=== PATIENT | female | born 1990 | race Two or more races ===

== ENCOUNTER 2020-09-17 09:34 | Emergency (ER) | payer MEDICAID, SELFPAY ==
[~2020-09-17] VITALS: Ht 167.6 cm; Wt 181.4 kg
[2020-09-17 10:35] VITALS: BP 130/65
--- NOTE | 2020-09-17 10:35 | NUR ---
TO TENT AMBULATORY
[2020-09-17 12:22] VITALS: BP 130/65
--- NOTE | 2020-09-17 12:22 | NUR ---
D/C BY DR OG. ALL INSTRUCTIONS AND RX GIVEN BY .
== END 2020-09-17 12:22 | disposition home or self-care (01) ==
LOC: MED 09:34
DX: S00.81XA Abrasion of other part of head, initial encounter (principal); W19.XXXA Unspecified fall, initial encounter; Y93.89 Activity, other specified; Y92.89 Other specified places as the place of occurrence of the external cause; Y99.8 Other external cause status
CPT/HCPCS: 99282

== ENCOUNTER 2020-11-26 17:39 | Emergency (ER) | payer MEDICAID, SELFPAY ==
[~2020-11-26] VITALS: Ht 163.8 cm; Wt 183.8 kg
[2020-11-26 17:48] VITALS: BP 185/108
--- NOTE | 2020-11-26 17:58 | NUR ---
PATIENT AMBULATED TO BED 06 WITH STEADY GAIT
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
[2020-11-26] MEDS ORDERED: LORazepam 2 MG/ML VIAL IM ONE (18:10)
[2020-11-26 18:58] VITALS: BP 178/100
--- NOTE | 2020-11-26 18:58 | NUR ---
Patient discharged with v/s stable. Written and verbal after care instructions about social anxiety disorder given and explained. Patient alert, oriented and verbalized understanding of instructions. Ambulatory with steady gait. All questions addressed prior to discharge. ID band removed. Patient advised to follow up with PMD. Opportunity to ask questions provided and answered.
== END 2020-11-26 18:58 | disposition home or self-care (01) ==
LOC: MED 17:39
DX: F41.9 Anxiety disorder, unspecified (principal); E66.9 Obesity, unspecified; I10 Essential (primary) hypertension
CPT/HCPCS: 96372; 99283; J2060

== ENCOUNTER 2020-12-16 16:11 | Emergency (ER) | payer MEDICAID ==
[~2020-12-16] VITALS: Ht 167.6 cm; Wt 195.0 kg
[2020-12-16 16:22] VITALS: BP 152/80
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
--- NOTE | 2020-12-16 16:30 | NUR ---
PT DOES NOT FEEL SAFE AT HOME, DENIES SI.
--- NOTE | 2020-12-16 16:44 | NUR ---
INTERACTIVE ACCOUNT MANAGER IS REQUESTING TO SEE PT, PT STATES SHE DOES NOT WANT HER IN ROOM BECAUSE SHE DOES NOT FEEL SAFE WITH HER.
[2020-12-16] MEDS ORDERED: KETOROLAC 30 MG/ML VIAL IM ONE (16:55)
--- NOTE | 2020-12-16 17:10 | NUR ---
PT UNABLE TO GIVE URINE AT THIS TIME AND REQUESTING SPECIAL EDUCATION SECRETARY
--- NOTE | 2020-12-16 17:19 | NUR ---
X RAY AT BEDSIDE
--- NOTE | 2020-12-16 17:34 | NUR ---
PER HOTEL CUSTODIAN, PT HAS TO REACH OUT TO HER ASSISTANT ENGINEER REGARDING HER REQUEST FOR A NEW BOARD AND CARE.
--- NOTE | 2020-12-16 17:39 | NUR ---
PT WAS TAKEN TO IMAGING
--- NOTE | 2020-12-16 18:05 | NUR ---
PT BROUGHT BACK FROM RADIOLOGY VIA W/C AND PLACED IN BED 8 ACCOMPANIED BY ZELDA.
--- NOTE | 2020-12-16 18:06 | NUR ---
PT RETURNED FROM IMAGING. NOW RESTING IN BED.
[2020-12-16] MEDS ORDERED: NAPR-54 PO (18:43)
[2020-12-16] MEDS ORDERED: METH750T5 PO (18:43)
--- NOTE | 2020-12-16 19:13 | NUR ---
PATRICK MASTERS: [phone]
[2020-12-16 19:14] VITALS: BP 152/80
--- NOTE | 2020-12-16 19:14 | NUR ---
Patient discharged with v/s stable. Written and verbal after care instructions given and explained. Patient alert, oriented and verbalized understanding of instructions. Ambulatory with by caregiver. All questions addressed prior to discharge. ID band removed. Patient advised to follow up with PMD. Rx of METHOCARBAMOL, NAPROXEN given. Patient educated on indication of medication including possible reaction and side effects. Opportunity to ask questions provided and answered.
--- NOTE | 2020-12-16 19:23 | NUR ---
PT DENIED SI AGAIN, GUERRERO IS INSISTING ON PSYCH EVAL, KIM MADE AWARE AND DENIES NEED FOR EVAL IF PT IS DENYING SI AND IS A&OX4.
== END 2020-12-16 19:14 | disposition home or self-care (01) ==
LOC: MED 16:11
DX: M54.2 Cervicalgia (principal); M54.5 Low back pain; M25.561 Pain in right knee; E11.9 Type 2 diabetes mellitus without complications; I10 Essential (primary) hypertension; Y04.8XXA Assault by other bodily force, initial encounter; Y93.89 Activity, other specified; Y92.89 Other specified places as the place of occurrence of the external cause; Y99.8 Other external cause status
CPT/HCPCS: 72050; 72110; 73562; 81002; 81025; 96372; 99284; J1885

== ENCOUNTER 2023-01-05 18:41 | Emergency (ER) | payer MEDICAID ==
[~2023-01-05] VITALS: Ht 172.7 cm; Wt 176.4 kg
[~2023-01-05 18:41] MED LIST: METH750T5 PO; NAPR-54 PO
[2023-01-05 18:57] VITALS: BP 142/58
--- NOTE | 2023-01-05 19:00 | NUR ---
AVULSION OF THE 3RD METATARSAL OF THE LEFT FOOT, SUSTAINED AN HOUR COMMUNITY HEALTH PROMOTER. BLEEDING CONTROLLED.
--- NOTE | 2023-01-05 19:01 | NUR ---
AVULSION OF THE 3RD METATARSAL OF THE LEFT FOOT, SUSTAINED AN HOUR SURVEILLANCE SENSOR OFFICER. BLEEDING CONTROLLED.
--- NOTE | 2023-01-05 19:18 | NUR ---
CASTING TECHNICIAN BARRIOS examining patient.
--- NOTE | 2023-01-05 19:27 | NUR ---
Patient taken to bed 11.
[2023-01-05] MEDS ORDERED: LIDOCAINE MPF 1% 10 MG/ML VIAL INJ ONE (19:30)
--- NOTE | 2023-01-05 19:30 | NUR ---
caregiver at the bedside with pt
--- NOTE | 2023-01-05 19:45 | NUR ---
doing the procedure
[2023-01-05] MEDS ORDERED: IBUP-2213 PO (19:58)
[2023-01-05 20:11] VITALS: BP 130/68
== END 2023-01-05 20:39 | disposition home or self-care (01) ==
LOC: MED 18:41
DX: S91.202A Unspecified open wound of left great toe with damage to nail, initial encounter (principal); W22.8XXA Striking against or struck by other objects, initial encounter; Y93.89 Activity, other specified; Y92.89 Other specified places as the place of occurrence of the external cause; Y99.8 Other external cause status
CPT/HCPCS: 11730; 90471; 90715; 99284; J2001

== ENCOUNTER 2023-01-11 18:13 | Emergency (ER) | payer MEDICAID ==
[~2023-01-11] VITALS: Ht 167.6 cm; Wt 179.2 kg
[~2023-01-11 18:13] MED LIST changes: +IBUP-2213 PO
[2023-01-11 18:22] VITALS: BP 151/86
--- NOTE | 2023-01-11 18:40 | NUR ---
PT AMBULATED TO BED 5
--- NOTE | 2023-01-11 18:53 | NUR ---
FRANKLIN AT BEDSIDE FOR EVALUATION
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
[2023-01-11] MEDS ORDERED: NACL 0.9% 1,000 ML IV ONE (19:00)
--- NOTE | 2023-01-11 19:30 | NUR ---
REPORT GIVEN TO MICHELINE HELTON. TRANSFER OF CARE AT THIS TIME
--- NOTE | 2023-01-11 19:39 | NUR ---
REPORT FR [place] ORTIZ , ALL QUESTIONS WERE ANSWERED , PT IN NAD
[2023-01-11 20:28] LABS: BASOPHILS # (AUTO) 0.1 K/uL (0.00-0.22); BASOPHILS % (AUTO) 0.7 % (0.0-2.0); EOSINOPHILS # (AUTO) 0.2 K/uL (0-0.4); HEMATOCRIT 37.8 % (36-48); HEMOGLOBIN 12.8 g/dL (12.0-16.0); MEAN CORPUSCULAR HEMOGLOBIN 31 pg (27-31); MEAN CORPUSCULAR HGB CONC 34 g/dL (33-37); MEAN CORPUSCULAR VOLUME 92.3 fL (80-94); MONOCYTES # (AUTO) 0.7 K/uL (0.8-1.0); MONOCYTES % (AUTO) 6.4 % (1.7-9.3); NEUTROPHILS # (AUTO) 7.6 K/uL (1.8-7.7); NEUTROPHILS % (AUTO) 71.9 % (42.2-75.2); PLATELET COUNT (AUTO) 229 K/uL (140-450); WHITE BLOOD COUNT (AUTO) 10.6 K/uL (4.8-10.8)
[2023-01-11 21:03] LABS: ALBUMIN 3.5 g/dL (3.4-5.0); ANION GAP 12.5 (8-16); CARBON DIOXIDE 30.3 mmol/L (21-32); POTASSIUM 3.8 mmol/L (3.5-5.1); TOTAL BILIRUBIN 0.2 mg/dL (0.0-1.0)
[2023-01-11] MEDS ORDERED: LOPE1TAB14 PO (21:19)
[2023-01-11 21:55] VITALS: BP 125/87
--- NOTE | 2023-01-11 22:00 | NUR ---
Patient discharged with v/s stable. Written and verbal after care instructions given and explained. Patient alert, oriented and verbalized understanding of instructions. Ambulatory with by caregiver. All questions addressed prior to discharge. ID band removed. Patient advised to follow up with PMD. Rx of LOPERAMIDE given. Patient educated on indication of medication including possible reaction and side effects. Opportunity to ask questions provided and answered.
[2023-01-14] MEDS ORDERED: LOPE1TAB14 PO (16:10)
== END 2023-01-11 21:30 | disposition home or self-care (01) ==
LOC: MED 18:13
DX: R19.7 Diarrhea, unspecified (principal); M54.50 Low back pain, unspecified; R10.30 Lower abdominal pain, unspecified; I10 Essential (primary) hypertension; Z79.899 Other long term (current) drug therapy
CPT/HCPCS: 36415; 80053; 83690; 85025; 96360; 99283; J7030

== ENCOUNTER 2023-01-15 08:21 | Emergency (ER) | payer MEDICAID ==
[~2023-01-15] VITALS: Ht 167.6 cm; Wt 177.8 kg
[~2023-01-15 08:21] MED LIST changes: +LOPE1TAB14 PO
[2023-01-15 08:25] VITALS: BP 147/79
--- NOTE | 2023-01-15 08:30 | NUR ---
suture removal kit at bedside
[2023-01-15 09:10] VITALS: BP 147/79
--- NOTE | 2023-01-15 09:10 | NUR ---
Patient discharged with v/s stable. Written and verbal after care instructions given and explained. Patient verbalized understanding. Ambulatory with steady gait. All questions addressed prior to discharge. Advised to follow up with PMD.
[2023-01-15] MEDS ORDERED: LOPE1TAB14 PO (12:18)
== END 2023-01-15 09:10 | disposition home or self-care (01) ==
LOC: MED 08:21
DX: S91.115D Laceration without foreign body of left lesser toe(s) without damage to nail, subsequent encounter (principal); I10 Essential (primary) hypertension; Z79.899 Other long term (current) drug therapy; X58.XXXD Exposure to other specified factors, subsequent encounter
CPT/HCPCS: 99281

== ENCOUNTER 2023-01-19 18:56 | Emergency (ER) | payer MEDICAID ==
[~2023-01-19] VITALS: Ht 167.6 cm; Wt 178.7 kg
[2023-01-19 19:10] VITALS: BP 128/64
[2023-01-19] MEDS ORDERED: diphenhydrAMINE 50 MG/ML VIAL IM ONE (22:35)
[2023-01-19] MEDS ORDERED: methylPREDNISolone SS 125 MG in WATER STERILE 2 ML IM ONE (22:35)
[2023-01-19] MEDS ORDERED: methylPREDNISolone SS 125 MG/2 ML VIAL ONE (22:37)
[2023-01-19] MEDS ORDERED: WATER STERILE 10 ML MC ONE (22:37)
[2023-01-19] MEDS ORDERED: BEN50 PO (22:48)
[2023-01-19 22:55] VITALS: BP 128/64
--- NOTE | 2023-01-19 22:55 | NUR ---
D/C BY . PRESCRIBED BENADRYL, ACCOMPANIED BY ANGELINA
== END 2023-01-19 22:55 | disposition home or self-care (01) ==
LOC: MED 18:56
DX: L50.9 Urticaria, unspecified (principal); I10 Essential (primary) hypertension; Z79.899 Other long term (current) drug therapy
CPT/HCPCS: 96372; 99284; J1200; J2930

== ENCOUNTER 2023-02-03 19:55 | Emergency (ER) | payer MEDICAID ==
[~2023-02-03] VITALS: Ht 167.6 cm; Wt 223.2 kg
[~2023-02-03 19:55] MED LIST changes: +BEN50 PO
[2023-02-03 20:42] VITALS: BP 112/78
--- NOTE | 2023-02-03 22:25 | NUR ---
Patient comfortable in bed. No signs of cardiorespiratory distress.
--- NOTE | 2023-02-03 22:38 | NUR ---
DR TABOR AT BEDSIDE
[2023-02-04] MEDS ORDERED: NAPR-1704 PO (00:03)
[2023-02-04 00:35] VITALS: BP 141/87
== END 2023-02-04 00:34 | disposition home or self-care (01) ==
LOC: MED 19:55
DX: M25.571 Pain in right ankle and joints of right foot (principal); I10 Essential (primary) hypertension; E03.9 Hypothyroidism, unspecified; Z79.899 Other long term (current) drug therapy
CPT/HCPCS: 29515; 73610; 99283; Q0092

== ENCOUNTER 2023-02-11 19:04 | Emergency (ER) | payer MEDICAID ==
[~2023-02-11] VITALS: Ht 162.6 cm; Wt 175.5 kg
[~2023-02-11 19:04] MED LIST changes: +NAPR-1704 PO
[2023-02-11 19:09] VITALS: BP 138/75
--- NOTE | 2023-02-11 19:54 | NUR ---
PT TAKEN TO XRAY
--- NOTE | 2023-02-11 20:00 | NUR ---
PT RETURN FROM RADIOLOGY TO ER LOBBY
[2023-02-11] MEDS ORDERED: IBUPROFEN 600 MG TAB PO ONE (20:15)
--- NOTE | 2023-02-11 20:25 | NUR ---
PT WAS ALREADY GIVEN MOTRIN BY DETENTION.
[2023-02-11 20:27] VITALS: BP 138/75
== END 2023-02-11 20:27 | disposition home or self-care (01) ==
LOC: MED 19:04
DX: S93.402A Sprain of unspecified ligament of left ankle, initial encounter (principal); I10 Essential (primary) hypertension; E03.9 Hypothyroidism, unspecified; E11.9 Type 2 diabetes mellitus without complications; Z79.899 Other long term (current) drug therapy; Z79.1 Long term (current) use of non-steroidal anti-inflammatories (NSAID); F31.9 Bipolar disorder, unspecified; Y04.0XXA Assault by unarmed brawl or fight, initial encounter; Y92.009 Unspecified place in unspecified non-institutional (private) residence as the place of occurrence of the external cause; Y93.89 Activity, other specified; Y99.8 Other external cause status
CPT/HCPCS: 73610; 99283

== ENCOUNTER 2023-03-14 16:38 | Emergency (ER) | payer MEDICAID ==
[~2023-03-14] VITALS: Ht 170.2 cm; Wt 173.3 kg
[2023-03-14 16:51] VITALS: BP 113/72; PULSE 80; RESP 20; TEMP 97.4; O2SAT 98
[2023-03-14] MEDS ORDERED: BACITRACIN OINT 500 UNITS/GM PKT TP ONE (18:00)
[2023-03-14] MEDS ORDERED: IBUP-2213 PO (18:03)
--- NOTE | 2023-03-14 18:25 | NUR ---
VOLAR SPLINT APPLIED. + CMS. NON ADHERENT APPLIED TO L POSTERIOR HAND. + CMS
--- NOTE | 2023-03-14 18:25 | NUR ---
PT AMBULATED WITH CAREGIVER TO BED 03
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
[2023-03-14 19:10] VITALS: BP 113/72; PULSE 80; RESP 20; TEMP 97.4; O2SAT 98
--- NOTE | 2023-03-14 19:10 | NUR ---
Patient discharged with v/s stable. Written and verbal after care instructions given and explained. Patient alert, oriented and verbalized understanding of instructions. Ambulatory with steady gait. All questions addressed prior to discharge. ID band removed. Patient advised to follow up with PMD. Rx of IBUPROFEN (SENT) given. Patient educated on indication of medication including possible reaction and side effects. Opportunity to ask questions provided and answered.
--- NOTE | 2023-03-14 19:12 | NUR ---
The patient's care was reviewed and supervised by Laura Flower, RN, RN.
== END 2023-03-14 19:10 | disposition home or self-care (01) ==
LOC: MED 16:38
DX: S60.222A Contusion of left hand, initial encounter (principal); S60.221A Contusion of right hand, initial encounter; I10 Essential (primary) hypertension; E03.9 Hypothyroidism, unspecified; Z79.899 Other long term (current) drug therapy; W22.01XA Walked into wall, initial encounter; Y93.89 Activity, other specified; Y92.89 Other specified places as the place of occurrence of the external cause; Y99.8 Other external cause status
CPT/HCPCS: 73130; 90471; 90715; 99283

== ENCOUNTER 2023-03-17 20:42 | Emergency (ER) | payer MEDICAID ==
[~2023-03-17] VITALS: Ht 167.6 cm; Wt 171.0 kg
[2023-03-17 21:34] VITALS: BP 110/73; PULSE 69; RESP 20; TEMP 98.2; O2SAT 98
--- NOTE | 2023-03-17 21:42 | NUR ---
PT WENT TO THE LOBBY
--- NOTE | 2023-03-18 00:58 | NUR ---
PATIENT LEFT WITHOUT BEING SEEN BY DR. TABOR. NO FURTHER CARE PROVIDED FOR PATIENT.
== END 2023-03-18 00:58 | disposition left against medical advice (07) ==
LOC: MED 20:42
DX: M79.641 Pain in right hand (principal); Z53.21 Procedure and treatment not carried out due to patient leaving prior to being seen by health care provider
CPT/HCPCS: 99281

== ENCOUNTER 2023-04-05 18:16 | Emergency (ER) | payer MEDICAID ==
[~2023-04-05] VITALS: Ht 167.6 cm; Wt 195.0 kg
[~2023-04-05 18:16] MED LIST changes: +FAMO-92 PO; +MAG-27 PO; +METO-485 PO
[2023-04-05 18:45] VITALS: BP 120/71; PULSE 75; RESP 18; TEMP 98; O2SAT 100
--- NOTE | 2023-04-05 19:04 | NUR ---
PT AMBULATED TO BED 7 W/STEADY GAIT.
[2023-04-05 19:33] LABS: BARBITURATE, URINE NEGATIVE ng/ml (NEG <=200); BENZODIAZEPINE, URINE NEGATIVE ng/mL (NEG <=200); CANNABINOID, URINE NEGATIVE ng/mL (NEG <=50); COCAINE, URINE NEGATIVE ng/mL (NEG <=300); OPIATE, URINE NEGATIVE ng/mL (NEG <=2000); PHENCYCLIDINE SCREEN,URINE NEGATIVE ng/mL (NEG <=25)
--- NOTE | 2023-04-05 19:33 | NUR ---
RECEIVED REPORT FROM DAY SHIFT NURSE. PT LYING IN BED AND CALL LIGHT WITHIN REACH. C/O PAIN 02/15. CONTINUING CARE OF PT.
[2023-04-05 19:55] VITALS: PULSE 68; RESP 21; O2SAT 98
[2023-04-05 19:57] LABS: BASOPHILS % (AUTO) 0.5 % (0.0-2.0); EOSINOPHILS # (AUTO) 0.2 K/uL (0-0.4); EOSINOPHILS % (AUTO) 1.8 % (0.0-4.0); HEMATOCRIT 37.9 % (36-48); HEMOGLOBIN 12.6 g/dL (12.0-16.0); LYMPHOCYTES # (AUTO) 2.6 K/uL (2.5-16.5); LYMPHOCYTES % (AUTO) 28.9 % (20.5-51.1); MEAN CORPUSCULAR HEMOGLOBIN 31 pg (27-31); MEAN CORPUSCULAR HGB CONC 33 g/dL (33-37); MEAN CORPUSCULAR VOLUME 93.6 fL (80-94); MONOCYTES # (AUTO) 0.5 K/uL (0.8-1.0); MONOCYTES % (AUTO) 5.3 % (1.7-9.3); NEUTROPHILS # (AUTO) 5.6 K/uL (1.8-7.7); NEUTROPHILS % (AUTO) 63.5 % (42.2-75.2); PLATELET COUNT (AUTO) 215 K/uL (140-450); RED BLOOD CELL COUNT(AUTO) 4.05 MIL/uL (4.20-5.40); RED CELL DISTRIBUTION WIDTH 13.8 % (11.6-13.7); WHITE BLOOD COUNT (AUTO) 8.8 K/uL (4.8-10.8)
[2023-04-05 20:10] LABS: ALBUMIN 3.4 g/dL (3.4-5.0); ANION GAP 12.9 (8-16); CARBON DIOXIDE 28.6 mmol/L (21-32); CREATININE 0.8 mg/dL (0.6-1.3); POTASSIUM 3.5 mmol/L (3.5-5.1); TOTAL BILIRUBIN 0.1 mg/dL (0.0-1.0)
== END 2023-04-05 20:35 | disposition home or self-care (01) ==
LOC: MED 18:16
DX: M79.3 Panniculitis, unspecified (principal); R10.32 Left lower quadrant pain; R10.31 Right lower quadrant pain; R19.7 Diarrhea, unspecified; Z79.899 Other long term (current) drug therapy
CPT/HCPCS: 36415; 80053; 80305; 81002; 81025; 82150; 83690; 85025; 99284

== ENCOUNTER 2023-04-11 07:34 | Emergency (ER) | payer MEDICAID ==
[~2023-04-11] VITALS: Ht 167.6 cm; Wt 136.1 kg
[2023-04-11 07:37] VITALS: BP 134/82; PULSE 71; RESP 16; TEMP 98; O2SAT 96
[2023-04-11] MEDS ORDERED: ONDANSETRON 4 MG ODT PO ONE (07:45)
[2023-04-11 08:07] LABS: BASOPHILS % (AUTO) 0.4 % (0.0-2.0); EOSINOPHILS # (AUTO) 0.1 K/uL (0-0.4); EOSINOPHILS % (AUTO) 1.7 % (0.0-4.0); HEMATOCRIT 36.7 % (36-48); HEMOGLOBIN 12.5 g/dL (12.0-16.0); LYMPHOCYTES # (AUTO) 1.9 K/uL (2.5-16.5); LYMPHOCYTES % (AUTO) 28.7 % (20.5-51.1); MEAN CORPUSCULAR HEMOGLOBIN 31 pg (27-31); MEAN CORPUSCULAR HGB CONC 34 g/dL (33-37); MEAN CORPUSCULAR VOLUME 92.7 fL (80-94); MONOCYTES # (AUTO) 0.4 K/uL (0.8-1.0); MONOCYTES % (AUTO) 5.8 % (1.7-9.3); NEUTROPHILS # (AUTO) 4.1 K/uL (1.8-7.7); NEUTROPHILS % (AUTO) 63.4 % (42.2-75.2); PLATELET COUNT (AUTO) 216 K/uL (140-450); RED BLOOD CELL COUNT(AUTO) 3.96 MIL/uL (4.20-5.40); RED CELL DISTRIBUTION WIDTH 13.6 % (11.6-13.7); WHITE BLOOD COUNT (AUTO) 6.5 K/uL (4.8-10.8)
[2023-04-11 08:24] LABS: ALBUMIN 3.5 g/dL (3.4-5.0); ANION GAP 11.6 (8-16); CREATININE 0.8 mg/dL (0.6-1.3); POTASSIUM 3.6 mmol/L (3.5-5.1); TOTAL BILIRUBIN 0.3 mg/dL (0.0-1.0)
[2023-04-11 08:24] LABS: APPEARANCE,URINE CLOUDY (CLEAR); BILIRUBIN,URINE NEGATIVE (NEGATIVE); BLOOD, URINE 2+ (NEGATIVE); COLOR,URINE YELLOW (YELLOW); LEUKOCYTE ESTERASE ,URINE TRACE (NEGATIVE); NITRITE, URINE NEGATIVE (NEGATIVE); UGLUCOSE NEGATIVE (NEGATIVE)
[2023-04-11 08:25] LABS: ACETAMINOPHEN < 0.5 ug/ml (10-30); SALICYLATE < 2.8 mg/dL (2.8-20.0)
[2023-04-11] MEDS ORDERED: ONDANSETRON 4 MG/2 ML VIAL IVP ONE (08:25)
[2023-04-11] MEDS ORDERED: KETOROLAC 30 MG/ML VIAL IVP ONE (08:25)
--- NOTE | 2023-04-11 08:25 | NUR ---
32 Y/O F PATIENT PRESENTS TO ED WITH BECAUSE SHE INJESTED SMALL PIECES OF ALCOHOL WIPES, AND A BOTTLE OF PERFUME. PT STATES SHE IS HAVING NAUSEA AND MIDLIEN ABD PAIN. PT STATES SHE HAS VOMITTED BUT ONLY SALIVA COMES UP. PT DENIES DIARREHA; SKIN IS PINK/WARM/DRY; AAOX4 WITH EVEN AND STEADY GAIT; LUNGS CLEAR BL; HR EVEN AND REGULAR; PT DENIES ANY FEVER, CP, SOB, OR COUGH AT THIS TIME; PATIENT STATES PAIN OF 8/10 AT THIS TIME; VSS; PATIENT POSITIONED FOR COMFORT; HOB ELEVATED; BEDRAILS UP X2; CALL LIGHT WITH IN REACH,BED DOWN. ER MD MADE AWARE OF PT STATUS. PMHX HTN HYPOTHYROIDISM SLEEP APNEA BIPOLOR DISORDER SURGICAL HX NONE ALLERGIES NKA
[2023-04-11 08:35] VITALS: O2SAT 96
--- NOTE | 2023-04-11 08:37 | NUR ---
PT HAS BEEN MEDICATED PER PROVIDERS ORDERS.
--- NOTE | 2023-04-11 08:42 | NUR ---
PER DR. BERGMAN POSION CONTROL STATED SINCE PT IS NOT ALTERED AND HER LABS ARE NORMAL PT SHOULD BE WATCHED FOR FOUR HOURS, IF THERE ARE NO ADVERSE REACTIONS PT CAN BE SENT HOME.
[2023-04-11] MEDS ORDERED: ONDA-188 SL (09:51)
[2023-04-11] MEDS ORDERED: CEPH-588 PO (09:58)
[2023-04-11 10:09] VITALS: BP 133/86; PULSE 74; RESP 16; TEMP 98; O2SAT 96
--- NOTE | 2023-04-11 10:09 | NUR ---
dPatient discharged with v/s stable. Written and verbal after care instructions given and explained. Patient verbalized understanding. Ambulatory with steady gait. All questions addressed prior to discharge. Advised to follow up with PMD.
--- NOTE | 2023-04-11 10:10 | NUR ---
The patient's care was reviewed and supervised by [facility], RN.
== END 2023-04-11 10:09 | disposition home or self-care (01) ==
LOC: MED 07:34
DX: T18.8XXA Foreign body in other parts of alimentary tract, initial encounter (principal); N39.0 Urinary tract infection, site not specified; I10 Essential (primary) hypertension; E03.9 Hypothyroidism, unspecified; Z79.899 Other long term (current) drug therapy; Z02.89 Encounter for other administrative examinations; X58.XXXA Exposure to other specified factors, initial encounter; Y93.89 Activity, other specified; Y92.89 Other specified places as the place of occurrence of the external cause; Y99.8 Other external cause status
CPT/HCPCS: 36415; 71045; 74018; 80053; 81001; 81025; 83690; 85025; 87086; 96374; 96375; 99284; G0480; G0482; J1885; J2405

== ENCOUNTER 2023-04-19 16:05 | Emergency (ER) | payer MEDICAID ==
[~2023-04-19] VITALS: Ht 167.6 cm; Wt 167.8 kg
[~2023-04-19 16:05] MED LIST changes: +CEPH-588 PO; +ONDA-188 SL
[2023-04-19 16:30] VITALS: BP 132/82; PULSE 77; RESP 16; TEMP 98.8; O2SAT 95
[2023-04-19 17:01] LABS: BASOPHILS # (AUTO) 0.1 K/uL (0.00-0.22); BASOPHILS % (AUTO) 0.5 % (0.0-2.0); EOSINOPHILS # (AUTO) 0.1 K/uL (0-0.4); EOSINOPHILS % (AUTO) 1.3 % (0.0-4.0); HEMATOCRIT 37.7 % (36-48); HEMOGLOBIN 12.6 g/dL (12.0-16.0); LYMPHOCYTES # (AUTO) 1.8 K/uL (2.5-16.5); LYMPHOCYTES % (AUTO) 16.6 % (20.5-51.1); MEAN CORPUSCULAR HEMOGLOBIN 31 pg (27-31); MEAN CORPUSCULAR HGB CONC 33 g/dL (33-37); MEAN CORPUSCULAR VOLUME 92.8 fL (80-94); MONOCYTES # (AUTO) 0.7 K/uL (0.8-1.0); MONOCYTES % (AUTO) 6.3 % (1.7-9.3); NEUTROPHILS # (AUTO) 8.3 K/uL (1.8-7.7); NEUTROPHILS % (AUTO) 75.3 % (42.2-75.2); PLATELET COUNT (AUTO) 225 K/uL (140-450); RED BLOOD CELL COUNT(AUTO) 4.06 MIL/uL (4.20-5.40); RED CELL DISTRIBUTION WIDTH 13.6 % (11.6-13.7); WHITE BLOOD COUNT (AUTO) 11.1 K/uL (4.8-10.8)
[2023-04-19 17:16] LABS: ALBUMIN 3.4 g/dL (3.4-5.0); ANION GAP 12.4 (8-16); CALCIUM 8.7 mg/dL (8.5-10.1); CARBON DIOXIDE 29.5 mmol/L (21-32); CREATININE 0.9 mg/dL (0.6-1.3); POTASSIUM 3.9 mmol/L (3.5-5.1); TOTAL BILIRUBIN 0.3 mg/dL (0.0-1.0); TOTAL PROTEIN, SERUM 7.2 g/dL (6.4-8.2)
[2023-04-19 17:47] LABS: APPEARANCE,URINE SL CLOUDY (CLEAR); BILIRUBIN,URINE NEGATIVE (NEGATIVE); BLOOD, URINE NEGATIVE (NEGATIVE); COLOR,URINE YELLOW (YELLOW); LEUKOCYTE ESTERASE ,URINE TRACE (NEGATIVE); NITRITE, URINE NEGATIVE (NEGATIVE); PH,URINE 6.5 (5.0-9.0); PROTEIN,URINE NEGATIVE (NEGATIVE); UGLUCOSE NEGATIVE (NEGATIVE); UROBILINOGEN,URINE 0.2 EU/dL (0.2 - 1)
[2023-04-19 17:51] LABS: BACTERIA,URINE 2+ /HPF (None Seen); MUCUS,URINE 2+ /LPF (None Seen); RBC,URINE 0-5 /HPF (0-5); TRICHOMONAS,URINE None Seen /HPF (None Seen); WBC,URINE 0-5 /HPF (0-5); YEAST,URINE None Seen /HPF (None Seen)
[2023-04-19] MEDS ORDERED: KETOROLAC 30 MG/ML VIAL IM ONE (17:55)
[2023-04-19] MEDS ORDERED: ONDANSETRON 4 MG/2 ML VIAL IM ONE (17:55)
[2023-04-19 19:53] VITALS: BP 96/51; PULSE 74; RESP 17; TEMP 98.3; O2SAT 98
== END 2023-04-19 19:53 | disposition home or self-care (01) ==
LOC: MED 16:05
DX: R10.9 Unspecified abdominal pain (principal); R19.7 Diarrhea, unspecified; R11.2 Nausea with vomiting, unspecified; J45.909 Unspecified asthma, uncomplicated; I10 Essential (primary) hypertension; E03.9 Hypothyroidism, unspecified; Z79.899 Other long term (current) drug therapy
CPT/HCPCS: 36415; 74018; 80053; 81001; 81025; 83690; 85025; 87086; 96372; 99284; J1885; J2405

== ENCOUNTER 2023-04-23 16:48 | Emergency (ER) | payer MEDICAID ==
[~2023-04-23] VITALS: Ht 167.6 cm; Wt 113.4 kg
[2023-04-23 17:33] VITALS: BP 143/96; PULSE 84; RESP 20; TEMP 98; O2SAT 98
== END 2023-04-23 19:13 | disposition home or self-care (01) ==
LOC: MED 16:48
DX: S00.83XA Contusion of other part of head, initial encounter (principal); S80.11XA Contusion of right lower leg, initial encounter; S50.812A Abrasion of left forearm, initial encounter; S50.312A Abrasion of left elbow, initial encounter; S20.312A Abrasion of left front wall of thorax, initial encounter; M79.601 Pain in right arm; J45.909 Unspecified asthma, uncomplicated; I10 Essential (primary) hypertension; E03.9 Hypothyroidism, unspecified; F31.9 Bipolar disorder, unspecified; Z79.899 Other long term (current) drug therapy; Z79.2 Long term (current) use of antibiotics; Z79.1 Long term (current) use of non-steroidal anti-inflammatories (NSAID); Y04.0XXA Assault by unarmed brawl or fight, initial encounter; Y92.009 Unspecified place in unspecified non-institutional (private) residence as the place of occurrence of the external cause; Y93.89 Activity, other specified; Y99.8 Other external cause status
CPT/HCPCS: 99281

== ENCOUNTER 2023-05-03 23:48 | Emergency (ER) | payer MEDICAID ==
[~2023-05-03] VITALS: Ht 167.6 cm; Wt 171.9 kg
[2023-05-04 00:22] VITALS: BP 130/84; PULSE 69; RESP 16; TEMP 97.4
[2023-05-04] MEDS ORDERED: KETOROLAC 30 MG/ML VIAL IM ONE (03:00)
[2023-05-04 04:00] VITALS: BP 130/84; PULSE 69; RESP 16; TEMP 97.4
== END 2023-05-04 04:00 | disposition home or self-care (01) ==
LOC: MED 23:48
DX: S93.491A Sprain of other ligament of right ankle, initial encounter (principal); J45.909 Unspecified asthma, uncomplicated; I10 Essential (primary) hypertension; E03.9 Hypothyroidism, unspecified; Z79.899 Other long term (current) drug therapy; X58.XXXA Exposure to other specified factors, initial encounter; Y93.89 Activity, other specified; Y92.89 Other specified places as the place of occurrence of the external cause; Y99.8 Other external cause status
CPT/HCPCS: 29515; 73610; 96372; 99283; J1885

== ENCOUNTER 2023-05-17 19:12 | Emergency (ER) | payer MEDICAID ==
[~2023-05-17] VITALS: Ht 182.9 cm; Wt 136.1 kg
[2023-05-17 19:38] VITALS: BP 152/79; RESP 20; TEMP 97.4; O2SAT 100
[2023-05-17] MEDS ORDERED: NAPR-54 PO (19:58)
[2023-05-17] MEDS ORDERED: DEXAMETHASONE 10 MG/ML VIAL IM ONE (20:00)
[2023-05-17 20:10] VITALS: BP 152/79; RESP 20; TEMP 97.4; O2SAT 100
== END 2023-05-17 20:10 | disposition home or self-care (01) ==
LOC: MED 19:12
DX: R51.9 Headache, unspecified (principal); J45.909 Unspecified asthma, uncomplicated; E11.9 Type 2 diabetes mellitus without complications; E03.9 Hypothyroidism, unspecified; I10 Essential (primary) hypertension; Z79.899 Other long term (current) drug therapy; Z79.2 Long term (current) use of antibiotics; Z79.1 Long term (current) use of non-steroidal anti-inflammatories (NSAID)
CPT/HCPCS: 96372; 99283; J1100

== ENCOUNTER 2023-05-25 14:54 | Emergency (ER) | payer MEDICAID ==
[~2023-05-25] VITALS: Ht 167.6 cm; Wt 171.0 kg
[2023-05-25 15:20] VITALS: BP 125/99; PULSE 71; RESP 20; TEMP 98; O2SAT 96
[2023-05-25 16:07] LABS: BASOPHILS # (AUTO) 0.1 K/uL (0.00-0.22); BASOPHILS % (AUTO) 0.6 % (0.0-2.0); EOSINOPHILS # (AUTO) 0.2 K/uL (0-0.4); EOSINOPHILS % (AUTO) 1.8 % (0.0-4.0); HEMATOCRIT 36.7 % (36-48); HEMOGLOBIN 12.2 g/dL (12.0-16.0); LYMPHOCYTES # (AUTO) 2.5 K/uL (2.5-16.5); LYMPHOCYTES % (AUTO) 25.2 % (20.5-51.1); MEAN CORPUSCULAR HEMOGLOBIN 31 pg (27-31); MEAN CORPUSCULAR HGB CONC 33 g/dL (33-37); MEAN CORPUSCULAR VOLUME 92.8 fL (80-94); MONOCYTES # (AUTO) 0.6 K/uL (0.8-1.0); MONOCYTES % (AUTO) 5.5 % (1.7-9.3); NEUTROPHILS # (AUTO) 6.7 K/uL (1.8-7.7); NEUTROPHILS % (AUTO) 66.9 % (42.2-75.2); PLATELET COUNT (AUTO) 234 K/uL (140-450); RED BLOOD CELL COUNT(AUTO) 3.96 MIL/uL (4.20-5.40); RED CELL DISTRIBUTION WIDTH 13.6 % (11.6-13.7)
[2023-05-25 16:37] LABS: ALBUMIN 3.7 g/dL (3.4-5.0); ANION GAP 9.9 (8-16); CALCIUM 9.3 mg/dL (8.5-10.1); CARBON DIOXIDE 31.2 mmol/L (21-32); CREATININE 0.9 mg/dL (0.6-1.3); POTASSIUM 4.1 mmol/L (3.5-5.1); TOTAL BILIRUBIN 0.2 mg/dL (0.0-1.0); TOTAL PROTEIN, SERUM 7.4 g/dL (6.4-8.2)
[2023-05-25 16:45] VITALS: O2SAT 96
[2023-05-25 17:00] LABS: APPEARANCE,URINE CLEAR (CLEAR); BILIRUBIN,URINE NEGATIVE (NEGATIVE); BLOOD, URINE NEGATIVE (NEGATIVE); COLOR,URINE YELLOW (YELLOW); LEUKOCYTE ESTERASE ,URINE NEGATIVE (NEGATIVE); NITRITE, URINE NEGATIVE (NEGATIVE); PROTEIN,URINE NEGATIVE (NEGATIVE); UGLUCOSE NEGATIVE (NEGATIVE); UROBILINOGEN,URINE 0.2 EU/dL (0.2 - 1)
[2023-05-25 17:34] VITALS: BP 122/89; PULSE 69; RESP 20; TEMP 98; O2SAT 98
== END 2023-05-25 17:34 | disposition home or self-care (01) ==
LOC: MED 14:54
DX: K60.2 Anal fissure, unspecified (principal); K62.5 Hemorrhage of anus and rectum; J45.909 Unspecified asthma, uncomplicated; E03.9 Hypothyroidism, unspecified; I10 Essential (primary) hypertension; Z79.899 Other long term (current) drug therapy
CPT/HCPCS: 36415; 80053; 81003; 81025; 83690; 85025; 99283

== ENCOUNTER 2023-07-09 15:37 | Emergency (ER) | payer MEDICAID ==
[~2023-07-09] VITALS: Ht 167.6 cm; Wt 170.3 kg
[2023-07-09 15:48] VITALS: BP 128/73; PULSE 97; RESP 20; TEMP 97.7; O2SAT 96
[2023-07-09 19:01] VITALS: BP 128/73; PULSE 97; RESP 20; TEMP 97.7; O2SAT 96
== END 2023-07-09 19:02 | disposition home or self-care (01) ==
LOC: MED 15:37
DX: S09.90XA Unspecified injury of head, initial encounter (principal); J45.909 Unspecified asthma, uncomplicated; E11.9 Type 2 diabetes mellitus without complications; I10 Essential (primary) hypertension; E03.9 Hypothyroidism, unspecified; Z79.899 Other long term (current) drug therapy; Z79.1 Long term (current) use of non-steroidal anti-inflammatories (NSAID); Z79.2 Long term (current) use of antibiotics; W22.8XXA Striking against or struck by other objects, initial encounter; Y92.89 Other specified places as the place of occurrence of the external cause; Y93.89 Activity, other specified; Y99.8 Other external cause status
CPT/HCPCS: 99281

== ENCOUNTER 2023-07-12 18:52 | Emergency (ER) | payer MEDICAID ==
[~2023-07-12] VITALS: Ht 167.6 cm; Wt 171.9 kg
[2023-07-12 18:59] VITALS: BP 133/77; PULSE 88; RESP 18; TEMP 98; O2SAT 99
== END 2023-07-12 20:14 | disposition home or self-care (01) ==
LOC: MED 18:52
DX: S93.492A Sprain of other ligament of left ankle, initial encounter (principal); I10 Essential (primary) hypertension; E11.9 Type 2 diabetes mellitus without complications; J45.909 Unspecified asthma, uncomplicated; E03.9 Hypothyroidism, unspecified; Z79.4 Long term (current) use of insulin; Z79.899 Other long term (current) drug therapy; X58.XXXA Exposure to other specified factors, initial encounter; Y93.89 Activity, other specified; Y92.89 Other specified places as the place of occurrence of the external cause; Y99.8 Other external cause status
CPT/HCPCS: 73610; 73630; 99284

== ENCOUNTER 2023-08-01 20:12 | Emergency (ER) | payer MEDICAID ==
[~2023-08-01] VITALS: Ht 167.6 cm; Wt 167.8 kg
[2023-08-01 20:14] VITALS: BP 120/77; PULSE 78; RESP 16; TEMP 98.7; O2SAT 96
[2023-08-01] MEDS ORDERED: CEPH-588 PO (22:23)
== END 2023-08-01 22:30 | disposition home or self-care (01) ==
LOC: MED 20:12
DX: L03.114 Cellulitis of left upper limb (principal); I10 Essential (primary) hypertension; E03.9 Hypothyroidism, unspecified; J45.909 Unspecified asthma, uncomplicated; Z79.899 Other long term (current) drug therapy
CPT/HCPCS: 99282

== ENCOUNTER 2023-08-04 20:30 | Emergency (ER) | payer MEDICAID ==
[~2023-08-04] VITALS: Ht 161.3 cm; Wt 169.2 kg
[2023-08-04 21:07] VITALS: BP 133/78; PULSE 69; RESP 21; TEMP 98.2; O2SAT 97
== END 2023-08-04 23:30 | disposition home or self-care (01) ==
LOC: MED 20:30
DX: S09.90XA Unspecified injury of head, initial encounter (principal); J45.909 Unspecified asthma, uncomplicated; E11.9 Type 2 diabetes mellitus without complications; I10 Essential (primary) hypertension; E03.9 Hypothyroidism, unspecified; Z79.2 Long term (current) use of antibiotics; Z79.899 Other long term (current) drug therapy; Z79.1 Long term (current) use of non-steroidal anti-inflammatories (NSAID); W06.XXXA Fall from bed, initial encounter; Y93.89 Activity, other specified; Y92.89 Other specified places as the place of occurrence of the external cause; Y99.8 Other external cause status
CPT/HCPCS: 82948; 99282

== ENCOUNTER 2023-08-07 16:10 | Emergency (ER) | payer MEDICAID ==
[~2023-08-07] VITALS: Ht 167.6 cm; Wt 168.0 kg
[2023-08-07 16:33] VITALS: BP 123/75; PULSE 66; RESP 20; TEMP 98.1; O2SAT 97
[2023-08-07] MEDS ORDERED: HYDR-2734 TP (18:06)
== END 2023-08-07 18:38 | disposition home or self-care (01) ==
LOC: MED 16:10
DX: K64.8 Other hemorrhoids (principal); K60.2 Anal fissure, unspecified; M54.50 Low back pain, unspecified; J45.909 Unspecified asthma, uncomplicated; E03.9 Hypothyroidism, unspecified; I10 Essential (primary) hypertension; E11.9 Type 2 diabetes mellitus without complications; Z79.4 Long term (current) use of insulin; Z79.899 Other long term (current) drug therapy
CPT/HCPCS: 99283

== ENCOUNTER 2023-09-03 19:10 | Emergency (ER) | payer MEDICAID ==
[~2023-09-03] VITALS: Ht 167.6 cm; Wt 175.1 kg
[~2023-09-03 19:10] MED LIST changes: +HYDR-2734 TP
[2023-09-03 19:48] VITALS: PULSE 76; RESP 20; TEMP 98.1; O2SAT 98
[2023-09-03] MEDS ORDERED: ERYTHROMYCIN 0.5% OPTH OINT 1 GM TUBE OP ONE (20:20)
[2023-09-03] MEDS ORDERED: FLUORESCEIN OPTH STRIP 1 MG OP ONE (20:25)
[2023-09-03] MEDS ORDERED: PROPARACAINE 0.5% OPTH 15 ML BTL OP ONE (20:25)
[2023-09-03] MEDS ORDERED: ERYT5OIN58 OP (21:03)
== END 2023-09-03 21:18 | disposition home or self-care (01) ==
LOC: MED 19:10
DX: H02.813 Retained foreign body in right eye, unspecified eyelid (principal); H10.211 Acute toxic conjunctivitis, right eye; J45.909 Unspecified asthma, uncomplicated; I10 Essential (primary) hypertension; E11.9 Type 2 diabetes mellitus without complications; E03.9 Hypothyroidism, unspecified; F31.9 Bipolar disorder, unspecified; Z79.899 Other long term (current) drug therapy; Z79.1 Long term (current) use of non-steroidal anti-inflammatories (NSAID); Z79.2 Long term (current) use of antibiotics
CPT/HCPCS: 99283

== ENCOUNTER 2023-10-10 20:53 | Emergency (ER) | payer MEDICAID ==
[~2023-10-10] VITALS: Ht 162.6 cm; Wt 163.3 kg
[~2023-10-10 20:53] MED LIST changes: +ERYT5OIN58 OP
[2023-10-10 20:59] VITALS: BP 122/69; PULSE 74; RESP 16; TEMP 96.9; O2SAT 98
[2023-10-10] MEDS ORDERED: KETOROLAC 60 MG/2 ML VIAL IM ONE ×2 (21:10→21:11)
[2023-10-10 21:15] VITALS: O2SAT 98
[2023-10-10] MEDS ORDERED: IBUP-2213 PO (21:24)
== END 2023-10-10 21:40 | disposition home or self-care (01) ==
LOC: MED 20:53
DX: R51.9 Headache, unspecified (principal); F14.10 Cocaine abuse, uncomplicated; I10 Essential (primary) hypertension; J45.909 Unspecified asthma, uncomplicated; E11.9 Type 2 diabetes mellitus without complications; E03.9 Hypothyroidism, unspecified; Z79.899 Other long term (current) drug therapy; Z79.4 Long term (current) use of insulin
CPT/HCPCS: 96372; 99283; J1885

== ENCOUNTER 2023-10-13 20:33 | Emergency (ER) | payer MEDICAID ==
[~2023-10-13] VITALS: Ht 154.9 cm; Wt 145.1 kg
[2023-10-13 20:52] VITALS: BP 153/94; PULSE 93; RESP 18; TEMP 97.2; O2SAT 97
[2023-10-13] MEDS ORDERED: ONDA-188 SL (21:23)
== END 2023-10-13 21:27 | disposition home or self-care (01) ==
LOC: MED 20:33
DX: T50.991A Poisoning by other drugs, medicaments and biological substances, accidental (unintentional), initial encounter (principal); J45.909 Unspecified asthma, uncomplicated; E11.9 Type 2 diabetes mellitus without complications; I10 Essential (primary) hypertension; E03.9 Hypothyroidism, unspecified; Z79.899 Other long term (current) drug therapy; Z79.1 Long term (current) use of non-steroidal anti-inflammatories (NSAID); Z79.2 Long term (current) use of antibiotics; Y92.89 Other specified places as the place of occurrence of the external cause
CPT/HCPCS: 99283

== ENCOUNTER 2023-10-27 19:13 | Emergency (ER) | payer MEDICAID ==
[~2023-10-27] VITALS: Ht 167.6 cm; Wt 164.7 kg
[2023-10-27 19:30] VITALS: BP 100/50; PULSE 85; RESP 16; TEMP 96.7; O2SAT 95
[2023-10-27] MEDS ORDERED: [UNRECOGNIZED DRUG - CODE] RC (20:03)
[2023-10-28] MEDS ORDERED: HYDR-2734 TP (11:09)
== END 2023-10-27 20:15 | disposition home or self-care (01) ==
LOC: MED 19:13
DX: K64.9 Unspecified hemorrhoids (principal); J45.909 Unspecified asthma, uncomplicated; E11.9 Type 2 diabetes mellitus without complications; I10 Essential (primary) hypertension; E03.9 Hypothyroidism, unspecified; Z79.899 Other long term (current) drug therapy
CPT/HCPCS: 99282

== ENCOUNTER 2023-10-29 19:16 | Emergency (ER) | payer MEDICAID ==
[~2023-10-29] VITALS: Ht 167.6 cm; Wt 164.7 kg
[~2023-10-29 19:16] MED LIST changes: +[UNRECOGNIZED DRUG - CODE] RC
[2023-10-29 19:40] VITALS: BP 146/84; PULSE 88; RESP 16; TEMP 97.4; O2SAT 98
[2023-10-30] MEDS ORDERED: ACET-2619 PO (00:05)
[2023-10-30] MEDS ORDERED: IBUP-1842 PO (00:05)
== END 2023-10-30 00:18 | disposition home or self-care (01) ==
LOC: MED 19:16
DX: S60.221A Contusion of right hand, initial encounter (principal); J45.909 Unspecified asthma, uncomplicated; E11.9 Type 2 diabetes mellitus without complications; I10 Essential (primary) hypertension; E03.9 Hypothyroidism, unspecified; Z79.899 Other long term (current) drug therapy; W22.8XXA Striking against or struck by other objects, initial encounter; Y92.009 Unspecified place in unspecified non-institutional (private) residence as the place of occurrence of the external cause; Y93.89 Activity, other specified; Y99.8 Other external cause status
CPT/HCPCS: 73130; 99283

== ENCOUNTER 2023-11-08 18:09 | Emergency (ER) | payer MEDICAID ==
[~2023-11-08] VITALS: Ht 162.6 cm; Wt 166.6 kg
[~2023-11-08 18:09] MED LIST changes: +ACET-2619 PO; +IBUP-1842 PO
[2023-11-08 18:13] VITALS: BP 133/85; PULSE 68; RESP 18; TEMP 97.6; O2SAT 97
[2023-11-08 18:29] VITALS: TEMP 97.6
[2023-11-08 19:21] LABS: BASOPHILS # (AUTO) 0.1 K/uL (0.00-0.22); BASOPHILS % (AUTO) 0.7 % (0.0-2.0); EOSINOPHILS # (AUTO) 0.2 K/uL (0-0.4); EOSINOPHILS % (AUTO) 2.2 % (0.0-4.0); HEMOGLOBIN 13.5 g/dL (12.0-16.0); LYMPHOCYTES # (AUTO) 2.2 K/uL (2.5-16.5); LYMPHOCYTES % (AUTO) 23.9 % (20.5-51.1); MEAN CORPUSCULAR HEMOGLOBIN 32 pg (27-31); MEAN CORPUSCULAR HGB CONC 34 g/dL (33-37); MEAN CORPUSCULAR VOLUME 93.6 fL (80-94); MONOCYTES # (AUTO) 0.5 K/uL (0.8-1.0); MONOCYTES % (AUTO) 5.8 % (1.7-9.3); NEUTROPHILS # (AUTO) 6.1 K/uL (1.8-7.7); NEUTROPHILS % (AUTO) 67.4 % (42.2-75.2); PLATELET COUNT (AUTO) 237 K/uL (140-450); RED BLOOD CELL COUNT(AUTO) 4.27 MIL/uL (4.20-5.40); RED CELL DISTRIBUTION WIDTH 14.9 % (11.6-13.7); WHITE BLOOD COUNT (AUTO) 9.1 K/uL (4.8-10.8)
[2023-11-08 19:35] LABS: ALBUMIN 3.7 g/dL (3.4-5.0); ANION GAP 8.5 (8-16); CALCIUM 9.4 mg/dL (8.5-10.1); CARBON DIOXIDE 33.2 mmol/L (21-32); POTASSIUM 3.7 mmol/L (3.5-5.1); TOTAL PROTEIN, SERUM 8.9 g/dL (6.4-8.2)
[2023-11-08 19:46] LABS: TOTAL BILIRUBIN 0.1 mg/dL (0.0-1.0)
[2023-11-08 19:47] LABS: APPEARANCE,URINE CLEAR (CLEAR); BILIRUBIN,URINE NEGATIVE (NEGATIVE); BLOOD, URINE 2+ (NEGATIVE); COLOR,URINE YELLOW (YELLOW); LEUKOCYTE ESTERASE ,URINE NEGATIVE (NEGATIVE); NITRITE, URINE NEGATIVE (NEGATIVE); PROTEIN,URINE NEGATIVE (NEGATIVE); UGLUCOSE NEGATIVE (NEGATIVE); UROBILINOGEN,URINE 0.2 EU/dL (0.2 - 1)
[2023-11-08] MEDS: KETOROLAC 30 MG/ML VIAL IM ONE (20:00)
[2023-11-08 20:05] LABS: BACTERIA,URINE FEW /HPF (None Seen); MUCUS,URINE None Seen /LPF (None Seen); SQUAMOUS EPITHELIAL CELL,UR 0-3 (FEW) /LPF (0-3 (FEW)); WBC,URINE 0-5 /HPF (0-5); YEAST,URINE None Seen /HPF (None Seen)
[2023-11-08 20:06] LABS: TRICHOMONAS,URINE None Seen /HPF (None Seen); WHITE BLOOD CELL CASTS,URINE None Seen /LPF (None Seen)
[2023-11-08] MEDS ORDERED: ACET-10509 PO (20:14)
[2023-11-08 20:50] VITALS: BP 134/80; PULSE 60; RESP 16; O2SAT 95
== END 2023-11-08 20:50 | disposition home or self-care (01) ==
LOC: MED 18:09
DX: R10.84 Generalized abdominal pain (principal); T50.995A Adverse effect of other drugs, medicaments and biological substances, initial encounter; J45.909 Unspecified asthma, uncomplicated; E11.9 Type 2 diabetes mellitus without complications; I10 Essential (primary) hypertension; E03.9 Hypothyroidism, unspecified; Z79.899 Other long term (current) drug therapy; Y92.89 Other specified places as the place of occurrence of the external cause
CPT/HCPCS: 36415; 80053; 81001; 81025; 83690; 85025; 96372; 99283; J1885

== ENCOUNTER 2023-11-18 12:38 | Emergency (ER) | payer MEDICAID ==
[~2023-11-18] VITALS: Ht 167.6 cm; Wt 161.5 kg
[2023-11-18 12:40] VITALS: BP 142/80; PULSE 80; RESP 16; TEMP 97.5; O2SAT 96
[2023-11-18] MEDS ORDERED: BACI-418 TP (13:23)
[2023-11-18] MEDS: BACITRACIN OINT 500 UNITS/GM PKT TP ONE (13:28)
[2023-11-18 13:50] VITALS: BP 135/80; PULSE 78; RESP 16; TEMP 98; O2SAT 98
== END 2023-11-18 13:50 | disposition home or self-care (01) ==
LOC: MED 12:38
DX: S61.411A Laceration without foreign body of right hand, initial encounter (principal); E11.9 Type 2 diabetes mellitus without complications; I10 Essential (primary) hypertension; J45.909 Unspecified asthma, uncomplicated; E03.9 Hypothyroidism, unspecified; Z79.4 Long term (current) use of insulin; Z79.899 Other long term (current) drug therapy; W22.8XXA Striking against or struck by other objects, initial encounter; Y93.89 Activity, other specified; Y92.89 Other specified places as the place of occurrence of the external cause; Y99.8 Other external cause status
CPT/HCPCS: 99283

== ENCOUNTER 2023-11-23 16:58 | Emergency (ER) | payer MEDICAID ==
[~2023-11-23] VITALS: Ht 165.1 cm; Wt 164.7 kg
[~2023-11-23 16:58] MED LIST changes: +BACI-418 TP
[2023-11-23 17:06] VITALS: BP 135/78; PULSE 71; RESP 18; TEMP 97.3; O2SAT 97
== END 2023-11-23 19:16 | disposition home or self-care (01) ==
LOC: MED 16:58
DX: S93.691A Other sprain of right foot, initial encounter (principal); J45.909 Unspecified asthma, uncomplicated; E03.9 Hypothyroidism, unspecified; E11.9 Type 2 diabetes mellitus without complications; I10 Essential (primary) hypertension; Z79.4 Long term (current) use of insulin; Z79.899 Other long term (current) drug therapy; X58.XXXA Exposure to other specified factors, initial encounter; Y93.89 Activity, other specified; Y92.89 Other specified places as the place of occurrence of the external cause; Y99.8 Other external cause status
CPT/HCPCS: 73630; 99283; Q0092

== ENCOUNTER 2023-11-28 18:17 | Emergency (ER) | payer MEDICAID ==
[~2023-11-28] VITALS: Ht 167.6 cm; Wt 164.2 kg
[2023-11-28 18:24] VITALS: BP 125/83; PULSE 76; RESP 18; TEMP 97.6; O2SAT 95
== END 2023-11-28 20:02 | disposition home or self-care (01) ==
LOC: MED 18:17
DX: M79.671 Pain in right foot (principal); J45.909 Unspecified asthma, uncomplicated; E11.9 Type 2 diabetes mellitus without complications; I10 Essential (primary) hypertension; E03.9 Hypothyroidism, unspecified; Z79.899 Other long term (current) drug therapy
CPT/HCPCS: 99282

== ENCOUNTER 2023-11-30 18:44 | Emergency (ER) | payer MEDICAID ==
[~2023-11-30] VITALS: Ht 167.6 cm; Wt 163.3 kg
[2023-11-30 18:52] VITALS: BP 151/98; PULSE 92; RESP 18; TEMP 97.9; O2SAT 96
[2023-11-30 19:00] VITALS: BP 151/98; PULSE 92; RESP 18; TEMP 97.9; O2SAT 96
== END 2023-11-30 19:55 | disposition home or self-care (01) ==
LOC: MED 18:44
DX: S00.83XA Contusion of other part of head, initial encounter (principal); J45.909 Unspecified asthma, uncomplicated; E03.9 Hypothyroidism, unspecified; I10 Essential (primary) hypertension; Z79.899 Other long term (current) drug therapy; W22.8XXA Striking against or struck by other objects, initial encounter; Y93.89 Activity, other specified; Y92.89 Other specified places as the place of occurrence of the external cause; Y99.8 Other external cause status
CPT/HCPCS: 99281

== ENCOUNTER 2024-01-10 16:33 | Emergency (ER) | payer MEDICAID ==
[~2024-01-10] VITALS: Ht 162.6 cm; Wt 163.3 kg
[~2024-01-10 16:33] MED LIST changes: +NAPR-337 PO; -NAPR-54 PO
[2024-01-10 16:48] VITALS: BP 135/57; PULSE 67; RESP 18; TEMP 97.2; O2SAT 97
[2024-01-10 19:20] VITALS: BP 121/66; PULSE 89; RESP 18; TEMP 98.9; O2SAT 98
== END 2024-01-10 19:20 | disposition home or self-care (01) ==
LOC: MED 16:33
DX: S60.221A Contusion of right hand, initial encounter (principal); E11.9 Type 2 diabetes mellitus without complications; I10 Essential (primary) hypertension; E03.9 Hypothyroidism, unspecified; J45.909 Unspecified asthma, uncomplicated; Z79.4 Long term (current) use of insulin; Z79.899 Other long term (current) drug therapy; W22.01XA Walked into wall, initial encounter; Y93.89 Activity, other specified; Y92.89 Other specified places as the place of occurrence of the external cause; Y99.8 Other external cause status
CPT/HCPCS: 73130; 99283; Q0092

== ENCOUNTER 2024-01-18 17:59 | Emergency (ER) | payer MEDICAID ==
[~2024-01-18] VITALS: Ht 167.6 cm; Wt 171.5 kg
[2024-01-18 18:07] VITALS: BP 143/83; PULSE 71; RESP 18; TEMP 97.9; O2SAT 96
[2024-01-18 19:00] LABS: FLU A ANTIGEN negative (NEGATIVE); FLU B ANTIGEN NEGATIVE (NEGATIVE)
[2024-01-18] MEDS ORDERED: AMOX-999 PO (20:02)
[2024-01-18 20:17] VITALS: BP 131/43; PULSE 70; RESP 18; TEMP 97.9; O2SAT 96
== END 2024-01-18 20:17 | disposition home or self-care (01) ==
LOC: MED 17:59
DX: J18.8 Other pneumonia, unspecified organism (principal); Z20.822 Contact with and (suspected) exposure to COVID-19; J45.909 Unspecified asthma, uncomplicated; E11.9 Type 2 diabetes mellitus without complications; I10 Essential (primary) hypertension; E03.9 Hypothyroidism, unspecified; Z79.1 Long term (current) use of non-steroidal anti-inflammatories (NSAID); Z79.2 Long term (current) use of antibiotics; Z79.899 Other long term (current) drug therapy
CPT/HCPCS: 71046; 99284

== ENCOUNTER 2024-02-12 19:06 | Emergency (ER) | payer MEDICAID ==
[~2024-02-12] VITALS: Ht 167.6 cm; Wt 166.5 kg
[~2024-02-12 19:06] MED LIST changes: +AMOX-999 PO
[2024-02-12 19:24] VITALS: BP 130/91; PULSE 85; RESP 16; TEMP 97; O2SAT 99
[2024-02-12] MEDS ORDERED: ACETAMINOPHEN EXTRA STRENGTH 500 MG TAB PO ONE (20:50)
[2024-02-12] MEDS ORDERED: ACET-10509 PO (21:57)
[2024-02-12] MEDS ORDERED: ACETAMINOPHEN EXTRA STRENGTH 500 MG TAB PO SCH (22:20)
== END 2024-02-12 22:25 | disposition home or self-care (01) ==
LOC: MED 19:06
DX: S93.402A Sprain of unspecified ligament of left ankle, initial encounter (principal); S09.90XA Unspecified injury of head, initial encounter; J45.909 Unspecified asthma, uncomplicated; M79.642 Pain in left hand; I10 Essential (primary) hypertension; E03.9 Hypothyroidism, unspecified; Z79.1 Long term (current) use of non-steroidal anti-inflammatories (NSAID); Z79.2 Long term (current) use of antibiotics; Z79.899 Other long term (current) drug therapy; W22.8XXA Striking against or struck by other objects, initial encounter; Y93.89 Activity, other specified; Y92.89 Other specified places as the place of occurrence of the external cause; Y99.8 Other external cause status
CPT/HCPCS: 70450; 72125; 73610; 99284

== ENCOUNTER 2024-04-15 17:07 | Emergency (ER) | payer MEDICAID ==
[~2024-04-15] VITALS: Ht 162.6 cm; Wt 172.4 kg
[~2024-04-15 17:07] MED LIST changes: +ACET-10509 PO
[2024-04-15 17:26] VITALS: BP 143/99; PULSE 85; RESP 16; TEMP 98.6; O2SAT 97
[2024-04-15 19:48] VITALS: BP 143/99; PULSE 85; RESP 16; TEMP 98.6; O2SAT 97
== END 2024-04-15 19:48 | disposition home or self-care (01) ==
LOC: MED 17:07
DX: E86.0 Dehydration (principal); R04.0 Epistaxis; R42 Dizziness and giddiness; J45.909 Unspecified asthma, uncomplicated; E11.9 Type 2 diabetes mellitus without complications; I10 Essential (primary) hypertension; E03.9 Hypothyroidism, unspecified; Z79.899 Other long term (current) drug therapy
CPT/HCPCS: 81025; 82948; 93005; 99283

== ENCOUNTER 2024-07-06 18:44 | Emergency (ER) | payer MEDICAID ==
[~2024-07-06] VITALS: Ht 160 cm; Wt 164.2 kg
[~2024-07-06 18:44] MED LIST changes: -ACET-10509 PO; +ACET500T99 PO
[2024-07-06 18:50] VITALS: BP 129/81; PULSE 68; RESP 15; TEMP 98.6; O2SAT 97
[2024-07-06 19:28] VITALS: BP 100/71; PULSE 72; RESP 20; TEMP 98.1; O2SAT 98
[2024-07-06] MEDS: LIDOCAINE 5% 1 EA PATCH TP ONE (19:50)
[2024-07-06] MEDS: KETOROLAC 30 MG/ML VIAL IM ONE (19:50)
[2024-07-06 19:51] LABS: APPEARANCE,URINE CLEAR (CLEAR); BILIRUBIN,URINE NEGATIVE (NEGATIVE); BLOOD, URINE NEGATIVE (NEGATIVE); COLOR,URINE YELLOW (YELLOW); LEUKOCYTE ESTERASE ,URINE NEGATIVE (NEGATIVE); NITRITE, URINE NEGATIVE (NEGATIVE); PROTEIN,URINE NEGATIVE (NEGATIVE); UGLUCOSE NEGATIVE (NEGATIVE); UROBILINOGEN,URINE 0.2 EU/dL (0.2 - 1)
== END 2024-07-06 21:01 | disposition home or self-care (01) ==
LOC: MED 18:44
DX: R10.9 Unspecified abdominal pain (principal); M54.50 Low back pain, unspecified; J45.909 Unspecified asthma, uncomplicated; I10 Essential (primary) hypertension; Z79.899 Other long term (current) drug therapy
CPT/HCPCS: 81003; 81025; 96372; 99283; J1885